=== PATIENT | male | born 1945 | race Caucasian/White ===

== ENCOUNTER 2016-04-09 11:09 | Emergency (ER) | payer OTHER ==
[2016-04-09 11:41] VITALS: BP 131/87; PULSE 79; RESP 18; TEMP 98.1; O2SAT 99
--- NOTE | 2016-04-09 11:46 | UCPHY ---
[id number] Chief complaint: dog bite right hand HPI: 70-year-old male [place] the dog park with [place] dog when his dog's jaw became entangled in another dogs collar. When he attempted to remove his dog is he sustained to his right hand from his dog. His dog is fully vaccinated. Is complaining of pain and lacerations to the palm and fingers of his right hand. Denies other injuries. Last tetanus was under 10 years. Has had some numbing and tingling in his fingers but this seems to be resolving. ROS: 10 point Review of Systems is negative except as noted in the HPI. Physical exam: Gen: [Awake], [Alert], [No Distress] HEENT: Nose: [ no rhinorrhea] Eyes: [PERRLA], [EOMI] Mouth: [Moist mucosa] [] Neck: [Supple], [no JVD] Ext: Right hand: He has a deep laceration on the palmar aspect of his PIP joint of his little finger, 1 cm, laceration over the distal phalanx of his little finger, 7 mm, 1 cm laceration on the volar aspect of his right 5th the IP approximately 1 cm laceration over the thenar eminence 1 cm Puncture wound over the middle phalanx over the PIP of his foot pulses 4th finger Skin avulsion over the distal phalanx just proximal to the nail of his 5th digit He has full flexion and extension of all digits. Sensations intact in all lateral medial aspects of all digits. Neurovascularly intact in the radial, median, and ulnar nerve distribution Skin: [no rash] Neuro: [CN II-XII intact], [Sensation grossly intact], Strength [5]/5 in [ bilateral] [upper and] [lower] extremities - Family History Significant Family History: No pertinent family hx Constitutional: Initial Vital Signs Temperature (C) 36.7 C 04/09/16 11:34 Heart Rate 79 04/09/16 11:34 Respiratory Rate 18 04/09/16 11:34 Blood Pressure 131/87 H 04/09/16 11:34 O2 Sat (%) 99 04/09/16 11:34 O2 Delivery Mode Room Air Allergies/Adverse Reactions: No Known Allergies Allergy (Unverified 04/09/16 11:31) Home Medications: Medication Instructions Recorded Hydrocodone/Acetaminophen 1 - 2 each PO Q4-6PRN PRN #10 04/09/16 [Hydrocodon-Acetaminophen 5-325] tablet Medical Decision Making Procedures: Procedure: Laceration repair. Verbal consent was obtained from the patient. The 1 cm laceration on the palmar right 5th digit PIP joint was anesthetized with a digital nerve block 0.5 % bupivacaine. The wound was irrigated, draped and explored to its base with a gloved finger. There were no deep structures involved. No tendon injury was identified. The wound was loosely repaired with 4, 5-0 Ethilon simple interrupted sutures. The wound repair was uncomplicated. The procedure was performed by myself. Procedure: Laceration repair. Verbal consent was obtained from the patient. The 1 cm laceration on the right palm was anesthetized in the usual fashion. The wound was irrigated, draped and explored to its base with a gloved finger. There were no deep structures involved. No tendon injury was identified. The wound was loosely repaired with a single 5-0 Ethilon simple interrupted suture. The wound repair was uncomplicated. The procedure was performed by myself. Procedure: Laceration repair. Verbal consent was obtained from the patient. The 1 cm laceration on the volar PIP of the 5th finger was anesthetized in the usual fashion. The wound was irrigated, draped and explored to its base with a gloved finger. There were no deep structures involved. No tendon injury was identified. The wound was loosely repaired with a single 5-0 simple interrupted suture Ethilon suture. The wound repair was uncomplicated. The procedure was performed by myself. ED Course/Re-evaluation: The remainder of the lacerations or puncture wounds were left open as they were at increased risk for infection. All lacerations were repaired with very loose approximation allowing it to drain should subsequent infection developed. He will certainly need follow up with Hand surgery closely is disease or lacerations sustained from a dog bite. His tetanus is up-to-date. Departure - Departure Disposition: Home, Routine, Self-Care Clinical Impression: Dog bite, Hand laceration Condition: Good Instructions: Animal Bite (ED), Laceration (ED) Additional Instructions: Follow up with hand surgeon in 2-3 days for re-evaluation. Return to the emergency department or urgent care for increasing redness, warmth , increasing pain, discharge from the wounds, or any other concerns. Referrals: Saúl Chairez MD [Medical Doctor] - As per Instructions Prescriptions: Hydrocodone/Acetaminophen [Hydrocodon-Acetaminophen 5-325] 1 - 2 each PO Q4- 6PRN PRN #10 tablet PRN Reason: Pain, Severe - PQRS PQRS Measurement: 134: Depression screening and followup, PRIME MD-PHQ2 (12 years and older) Over the last 2 weeks, how often have you been bothered by any of the following problems? 1. Feeling down, depressed, or hopeless? 2. Little interest or pleasure in doing things? Patient answered no to both 1 and 2 130: Documentation of medications. Reviewed all patient medications, doses, route and frequency. 226: Do you smoke? No. 47: 65 and older: Advanced care planning. Patient designates surrogate decision maker as. Patient refused. 51: 18 years old and older with diagnosis of COPD, spirometry performance. Patient has no history of COPD 52: 18 years old and older with COPD and symptoms of COPD or FEV1<60% predicted prescribed a B Agonist. Spirometry not performed; equipment not available.
--- NOTE | 2016-04-09 12:05 | DX ---
Right Hand 3 Views History: Dogbite, multiple puncture wounds. Comparison: None available. Findings: No fractures identified. Contour irregularity of the distal aspect of the middle phalanx of the fourth finger suggests sequela of old fracture. Corticated osseous structure at the palmar aspec t of the base of middle phalanx of the third finger suggests old avulsion fracture. There is mild pal mar subluxation at the third metacarpophalangeal joint. Mild osteoarthritis is present, including at the first metacarpophalangeal joint and third and fourth metacarpophalangeal joints. There is no radi opaque foreign object. Impression: No acute osseous findings.
== END 2016-04-09 12:46 | disposition home or self-care (01) ==
LOC: CED 11:09
PROC: 0HQFXZZ Repair Right Hand Skin, External Approach (ICD-10-PCS; principal; 2016-04-09)
DX: S61.216A Laceration without foreign body of right little finger without damage to nail, initial encounter (principal); S61.411A Laceration without foreign body of right hand, initial encounter; S61.254A Open bite of right ring finger without damage to nail, initial encounter; Y92.830 Public park as the place of occurrence of the external cause; W54.0XXA Bitten by dog, initial encounter
CPT/HCPCS: 12002; 73130; G0463